=== PATIENT | female | born 1960 | race Caucasian/White ===

== ENCOUNTER 2019-02-09 08:17 | Inpatient (IN) ==
[~2019-02-09 08:17] MED LIST: MORPHINE SULFATE 15 MG TABLET.SA PO PRN; ROPIVACAINE HCL/PF 100 MG, EPINEPHrine 0.2 MG, KETOROLAC TROMETHAMINE 30 MG in NORMAL S... IJ PRN; TRANEXAMIC ACID 1,000 MG in NORMAL SALINE 100 ML IV PRN; ceFAZolin SODIUM 1 GM VIAL IV PRN
[2019-02-09] MEDS: RINGER'S SOLUTION,LACTATED 1,000 ML IV PRN ×2 (08:53→11:23)
--- NOTE | 2019-02-09 09:56 | ANES ---
Anesthesia Pre Procedure Eval Vitals/Labs: Last Vital Signs Temp 36.3 C 02/09/19 08:20 Pulse 78 02/09/19 08:20 Resp 16 02/09/19 08:20 BP 133/76 02/09/19 08:20 Pulse Ox 96 02/09/19 08:20 HOME MEDICATIONS Multivitamins [Multivitamin Rodrigo] 1 cap PO DAILY 08/03/13 [Last Taken 02/08/19] Calcium Carbonate/Vitamin D3 [Calcium 600-Vit D3 400 Tablet] 1 ea PO DAILY 07/18/17 [Last Taken 02/08/19] alprazolam 2 mg tablet 2 mg PO TID PRN #90 tab 12/12/18 [Last Taken 02/08/19] trazodone 100 mg tablet 200 mg PO HS #60 tab 12/12/18 [Last Taken 02/08/19] furosemide 40 mg tablet See Rx Instructions .ROUTE .COMPLEX #90 tab 02/05/19 [Last Taken 02/08/19] ibuprofen 800 mg tablet 800 mg PO TID PRN #90 tab 02/05/19 [Last Taken 02/02/19] pantoprazole 40 mg tablet,delayed release 40 mg PO DAILY #90 tab 02/05/19 [Last Taken 02/08/19] Allergies/Adverse Reactions: Allergies Allergy/AdvReac Type Severity Reaction Status Date / Time codeine AdvReac Mild NAUSEA AND Verified 02/09/19 08:27 VOMITING oxycodone AdvReac Mild Nausea Verified 02/09/19 08:27 tramadol AdvReac Mild Nausea Verified 02/09/19 08:27 - Planned Procedure Planned Procedure: Right Total Knee Arthroplasty Medication List Reviewed:: Yes Allergies Verified: Yes Medical History (Updated 12/21/18 @ 00:01 by ) Insomnia due to mental disorder (Chronic) Generalized anxiety disorder (Chronic) Scoliosis (Acute) Onset Date: Unknown Osteopenia (Acute) Onset Date: Unknown Osteoarthritis (Chronic) Onset Date: ~2013 GERD (gastroesophageal reflux disease) (Chronic) Onset Date: Unknown Degenerative joint disease of knee, right (Acute) Onset Date: Unknown CMC arthritis, thumb, degenerative (Acute) Onset Date: ~2016 left Herpes Onset Date: Unknown Anxiety (Resolved) Onset Date: Unknown Insomnia (Resolved) Onset Date: Unknown Left knee pain (Resolved) Onset Date: Unknown Peripheral edema (Resolved) Onset Date: Unknown Surgical History (Updated 09/03/18 @ 13:50 by CHARLENE Hinojosa) H/O colonoscopy Onset Date: ~2013 2004-Normal [id number], very capacious colon. Single sigmoid diverticulum. 07/27/13 Barium enema-redundant/capacious colon. recheck 5-10 years-contrast study due to anatomy) H/O elbow surgery Onset Date: ~2004 H/O: section Onset Date: Unknown 1976 1979 History of arthroplasty of left knee Onset Date: ~2015 Dr Thomson-with partial excision of scar tissue and partial synovectomy History of esophagogastroduodenoscopy (EGD) Onset Date: ~2015 Dr He-clotest negative. Moderate benign reactive gastropathy/chemical gastritis. Status post right foot surgery Onset Date: ~2008 [facility] with partial oopherectomy Onset Date: ~1979 Right ovary intact arthproplasty cmc joint Onset Date: ~2017 left-Dr Thomson manipulation under anesthesia Onset Date: ~2014 Dr Thomson-left knee Family History (Updated 12/05/17 @ 13:46 by Chely Winkler RN) Brother Brain cancer, Onset Age: 52 Daughter Alive and well Father Stomach cancer, Onset Age: 63 Mother Depression MVA (motor vehicle accident) Sister Thyroid cancer Depression - Family Anesthesia History Family History:: no untoward family reactions to anesthesia, no familial bleeding tendencies, no family history of clotting disorders, no family history of premature - Airway/Neck/Teeth Teeth Condition: missing Denture Type: Perm crown/bridge Mallampatti Score: 2 Thyromental (T-M) distance: > 6 cm Mandibulo Hyoid distance: > 3 cm - Respiratory Respiratory Physical: lungs clear Smoking Status: Never smoker Discussed smoking cessation including day of surgery: No Sleep Apnea currently treated: No Sleep Apnea by current assessment: No Discussed Risks/Treatment of GRETCHEN: No - Cardiovascular Tolerate Activity: Good Heart Sounds: S1 & S2, Regular - Anesthesia Assessment and Plan ASA Class: PS, II Anesthesia Type Plan: Block - Ultrasound guided adductor canal nerve block for postop analgesia, Spinal
--- NOTE | 2019-02-09 11:52 | OR ---
Operative Report - Dictated Report Narrative: Date: 02/09/2019 Preoperative diagnosis: Right knee degenerative joint disease. Postoperative diagnosis: Right knee degenerative joint disease. Procedure: Right total knee arthroplasty. Surgeon: Vincent Thomson M.D. Dietitian Helper: Mike Vega PA-C (provided and essential set of skilled, educated hands that assisted with transfer, positioning, prepping, draping, manipulation, retraction, placement of jigs, injection, insertion of implants, irrigation, closure wounds, and dressings all of which could not be performed by the available surgical crew) Anesthesia: Spinal with regional block and local periarticular joint injection. Complications: None Specimens: Bone for disposal per patient -request. Estimated blood loss: Minimal. Tourniquet time: 75 Minutes at 325 millimeters of mercury. Retained implants: Depuy Attune size 5 narrow right lugged cemented posterior stabilized femoral component. Size 4 fixed-bearing cemented tibial platform. 5 by 5 millimeter posterior stabilized cross-linked tibial insert. 35 millimeter medialized patella button. Indications: Mrs. Crespo is a 58-year-old female who has had long-standing right knee pain and arthrosis. This patient was followed in my clinic for period of time with significant complaints of right knee pain consistent with arthritic changes. She had failed conservative measures including, but not limited to, activity modification, passage of time, medications, and other conservative measures. Patient wished to proceed with surgical treatment. The risks, benefits, and alternatives were discussed in clinic. The risks of , blood clots, bleeding, infection, nerve/tendon blood vessel/ injury, malposition of components, intraoperative fracture, postoperative limited range of motion, persistent pain, failure of components, and need for additional procedures. Patient wished to proceed consent was obtained after answering all questions. Procedure: After marking the correct extremity on the floor, the patient was taken to the operating room. A timeout was performed. IV antibiotics con sisting of Ancef were administered prior to the procedure. A regional followed by spinal anesthetic was induced by anesthesia, per my request, on the operative table with all bony prominences well-padded. Christine catheter was placed, and a bump was placed under the operative side buttock. SCDs and LOUISE hose were utilized on the nonoperative leg. A well-padded tourniquet was applied to the operative thigh. The operative leg was then pre-scrubbed with alcohol, prepped, and draped in a standard sterile fashion. After exsanguinating the extremity with an Esmarch bandage, the tourniquet was inflated. After marking out the anterior knee for standard incision centered over the patella, the skin was incised and dissected down to the joint retinaculum. The joint retinaculum was marked out as well as the horizontal axis of the patella, and a standard medial parapatellar arthrotomy was then made. The most proximal aspect of the quadriceps tendon and the patella tendon insertion were protected from release. A partial synovectomy was performed as well as a resection of the infrapatellar fat pad. The distal femoral fat pad proximal to the trochlea was also resected using cautery. The soft tissues were elevated off the medial aspect of the proximal tibia using a Fernandes elevator ensuring that we did not transect the medial collateral ligament. Upon initial evaluation range of motion was approximately 0 degrees to 130 degrees of flexion. There were signs of advanced arthrosis in the lateral and patellofemoral greater than medial joint spaces. There were large marginal osteophytes which were removed with a rongeur. The knee was hyperflexed and the patella was tucked laterally. Protecting the surrounding soft tissues with Homans, an entry drill was placed down the femoral canal using Whitesides line for guidance into the entry point. The intramedullary femoral alignment marc was utilized in order to cut the distal femur in 5 degrees of valgus resecting 10 millimeters of bone. Next the distal femur was sized to a size 5. A posterior referencing guide was utilized to place the distal femoral cutting block in 3 degrees of external rotation. This was pinned into place. The rotation was confirmed both visually and based on anatomic landmarks. The 4 in 1 cutting jig of the appropriate size was utilized in order to make all bony cuts. The angle wing was used to ensure no notching. Retractors were utilized in order to protect surrounding soft tissues. This cut did not result in any excessive notching. We then cut the box centered over the distal femur. This allowed for resection of the anterior and posterior cruciate ligaments. I then turned my attention to the preparation of the tibia. Using an extra medullary tibial alignment marc, 3 millimeters of bone was resected off the medial articular surface. This was made perpendicular to the mechanical axis of the joint with the alignment marc centered over the ankle mortise. The alignment marc was checked and was noted to be parallel to the mechanical axis, centered over the medial one third of the tibial tubercle, paralleling the anterior surface of the tibia. We then turned our attention to the remaining meniscus and soft tissues. These were removed while protecting the surrounding ligaments and soft tissues. The marginal osteophytes off the anterior, posterior, medial, lateral aspects of the femur and tibia were removed. The tibia was sized out to a size 4. Next the tibia was drilled and punched in an externally rotated position. Next the trial femur and a series of tibial inserts were utilized in order to allow for full extension and maximal flexion. It was found that a 5 millimeter insert gave the best range of motion and stability at multiple flexion points as well as at full extension there was less than 2 mm of gapping both medially and laterally. There is minimal anterior translation with the knee at 90 degrees of flexion and no signs of being able to dislocate the knee. The patella was then prepared. The initial thickness was 22 millimeters. This was reamed down to 12 millimeters parallel to the anterior surface of the patella. It was sized out to a size 35 medialized patella button. This was then drilled and trialed. Without any medial restraint the patella tracked appropriately and did not sublux or dislocate. At this point, it was felt these were the appropriate sized implants, and all trials were removed. The standard periarticular joint injection consisting of ropivacaine, Toradol, and epinephrine were injected into the periarticular joint tissues. The bony surfaces were thoroughly irrigated with a pulsatile-suction saline irrigation device. A bone plug from the prior resected anterior chamfer cut was placed into the drill hole at the distal femur. The bony surfaces were then dried in preparation for placement of the implants. The cement was vacuum mixed per the mfts's instructions. The cement was placed on the dry bony surfaces and posterior aspect of the implants. The implants were impacted into place, removing all extruded cement. At this point anesthesia administered tranexamic acid per protocol intravenously. The knee was placed in extension with axial loading with the trial insert while the cement cured. Once the cement cured, all remaining extruded cement was removed. The knee was placed through a range of motion with the trial insert to ensure appropriate range of motion and stability. Final range of motion was approximately 0 to 130 degrees. The knee was again thoroughly irrigated with pulsatile saline lavage. The final polyethylene insert was then impacted into place ensuring no retained soft tissues. The remaining periarticular joint injection was injected. A medium Hemovac drain was placed exiting superior laterally. The knee was then placed over a triangle and the arthrotomy was closed with interrupted #1 Vicryl after thoroughly irrigating the joint. The deep and subcutaneous tissues were closed with interrupted 0 and 3-0 Vicryl respectively. Skin was closed with a running subcutaneous 3-0 Monocryl and Prineo Dermabond dressing. 4 x 4's, Sof-Rol, and a full leg Edgar wrap were applied. All sponge, needle, blade, and instrument counts were correct prior to closing the wounds. Postoperative condition: The patient was awoken and transferred to the postanesthesia care unit in stable condition. Plan is to be admitted to the inpatient medical/surgical floor postoperatively for 24 hours of IV antibiotics, physical therapy, occupational therapy, and medical comanagement. Patient will be weightbearing as tolerated with range of motion as tolerated. DVT prophylaxis will be with SCDs, LOUISE hose, and pharmacological anticoagulation. Anticipated hospital stay is approximately 1-3 days.
[2019-02-09] MEDS ORDERED: ACETAMINOPHEN 500 MG TABLET PO PRN (11:53)
[2019-02-09] MEDS ORDERED: ONDANSETRON HCL/PF 2 MG/ML VIAL IV PRN (11:53)
[2019-02-09] MEDS ORDERED: MAG HYDROX/ALUMINUM HYD/SIMETH 30 ML UDC PO PRN (11:53)
[2019-02-09] MEDS ORDERED: diphenhydrAMINE HCL 50 MG/ML VIAL IV PRN (11:53)
[2019-02-09] MEDS ORDERED: ZOLPIDEM TARTRATE 5 MG TABLET PO PRN (11:53)
[2019-02-09] MEDS ORDERED: MAGNESIUM HYDROXIDE 30 ML UDC PO PRN (11:53)
[2019-02-09] MEDS ORDERED: DEXTROSE 5%-LACTATED RINGERS 1,000 ML IV PRN (11:53)
[2019-02-09] MEDS ORDERED: MORPHINE SULFATE 2 MG/ML DISP.SYRIN IV PRN (11:53)
[2019-02-09] MEDS ORDERED: HYDROmorphone HCL 2 MG/ML VIAL IV PRN (12:11)
[2019-02-09] MEDS ORDERED: NALOXONE HCL 0.4 MG/ML VIAL IV PRN (12:11)
--- NOTE | 2019-02-09 12:16 | ANES ---
Anesthesia Procedure Note Procedure Note: ANESTHESIA PROCEDURE NOTE Date of Procedure: 02/09/2019. Time of procedure: 1005. Performed by: Pedro Llanes CRNA Script Developer: None. Preprocedure diagnosis: Right knee degenerative joint disease. Post procedure diagnosis: Same. Procedure: Right ultrasound guided adductor canal block for postoperative analgesia. Indications: The patient is a 58-year-old female, requesting right ultrasound- guided abductor canal block for postoperative analgesia related to right total knee arthroplasty. Findings: See below. Details of the procedure: The tissue over the intended target site was cleansed with ChloraPrepand draped in a sterile fashion. 2 ml Lidocaine 1 % was infiltrated to the skin and subcutaneous tissue at the intended target site. Under sterile technique and ultrasound guidance a 18-gauge Tuohy needle was inserted through the right sartorius muscle to the saphenous nerve just anterior and medial to the superficial femoral artery and vein. 15 mL's of 0.5% bupivacaine was injected after negative aspiration for blood. Needle tip and spread of local anesthetic surrounding the saphenous nerve was observed throughout the injection with real time ultrasound visualization. The Tuohy needle was then removed intact. No complications were noted. The images were retained in the Hospital medical database. EBL: Minimal. Fluids: N/A. Specimen: N/A. Post procedure condition: The patient tolerated the procedure well. No complications were noted. Thank you for this consultation. Pedro Llanes CRNA
--- NOTE | 2019-02-09 12:17 | ANES ---
Post Anesthesia Discharge - Transfer of Care Transfer of Care handoff given to nurse: Yes - Discharge from PACU Discharge from PACU when meets criteria: Yes - Discharge to ASU Discharge to ASU-no complications/pt stable: Yes
--- NOTE | 2019-02-09 12:44 | ANES ---
Post Anesthesia Assessment - Vital Signs Vitals: Last Vital Signs Temp 36.6 C 02/09/19 12:30 Pulse 74 02/09/19 12:30 Resp 14 02/09/19 12:30 BP 115/76 02/09/19 12:30 Pulse Ox 96 02/09/19 12:30 Airway Patency: Normal - Mental Status Level Of Consciousness: Awake - Pain Level Pain Score: 5 - N/V Assessment Nausea/Vomiting Presence: None Dehydration:: No
[2019-02-09] MEDS: KETOROLAC TROMETHAMINE 15 MG/ML VIAL IV SCH ×2 (13:43→18:56)
[2019-02-09] MEDS: ceFAZolin SODIUM 1 GM in DEXTROSE 5 % IN WATER 100 ML IV SCH ×4 (15:10→20:05)
[2019-02-09] MEDS: PROCHLORPERAZINE EDISYLATE 5 MG/ML VIAL IV PRN (17:16)
[2019-02-09] MEDS: ALPRAZolam 1 MG TABLET PO PRN (19:15)
[2019-02-09] MEDS: MORPHINE SULFATE 15 MG TABLET.SA PO SCH (20:05)
[2019-02-09] MEDS ORDERED: traZODone HCL 150 MG, traZODone HCL 50 MG PO SCH ×2 (21:00)
[2019-02-09] MEDS ORDERED: NON-FORMULARY 1 DOSE DOSE (Trazodone Hcl [Trazodone Hcl] 200 MG) PO SCH (21:00)
[2019-02-09] MEDS ORDERED: SENNOSIDES/DOCUSATE SODIUM 1 TAB TABLET PO SCH (21:00)
[2019-02-10] MEDS: KETOROLAC TROMETHAMINE 15 MG/ML VIAL IV SCH ×3 (00:02→12:46)
[2019-02-10] MEDS: ceFAZolin SODIUM 1 GM in DEXTROSE 5 % IN WATER 100 ML IV SCH ×2 (02:13)
[2019-02-10] MEDS: HYDROcodone/ACETAMINOPHEN 1 EACH TABLET PO PRN ×3 (02:22→12:22)
[2019-02-10 05:54] LABS: Hematocrit 27.5 % (37.0-47.0); Hemoglobin 9.4 gm/dL (12.5-16.0); Mean Cell Volume 93.5 fl (78-100); Mean Corpuscular Hgb Conc 34.2 g/dl (32-36); Mean Platelet Volume 8.3 fl (8-12.5); Platelet Count 185 K/mm3 (150-450); Red Blood Count 2.94 M/mm3 (4.2-5.4); Red Cell Distribution Width 12.5 % (11.5-14.0); White Blood Count 7.6 K/mm3 (4.0-10.5)
[2019-02-10 06:15] LABS: BUN/Creatinine Ratio 11.9 (9.0-21.6); Calcium * 8.6 mg/dL (7.9-10.9); Carbon Dioxide 29.3 mmol/L (24-32.6); Estimated Creat Clear 73.7; Potassium 3.3 mmol/L (3.4-4.6)
[2019-02-10] MEDS ORDERED: PANTOPRAZOLE SODIUM 40 MG TABLET.EC PO SCH (07:00)
[2019-02-10] MEDS: PROCHLORPERAZINE EDISYLATE 5 MG/ML VIAL IV PRN (08:31)
[2019-02-10] MEDS ORDERED: FUROSEMIDE 40 MG TABLET PO PRN (09:00)
[2019-02-10] MEDS ORDERED: CALCIUM CARBONATE/VITAMIN D3 1 TAB TABLET PO SCH (09:00)
[2019-02-10] MEDS ORDERED: MULTIVITAMINS 1 CAP CAPSULE PO SCH (09:00)
[2019-02-10] MEDS: MORPHINE SULFATE 15 MG TABLET.SA PO SCH (09:55)
[2019-02-10] MEDS ORDERED: ENOXAPARIN SODIUM 40 MG/0.4 ML SYRG SC SCH (10:53)
--- NOTE | 2019-02-10 12:14 | DS ---
(1) Status post total right knee replacement Problem: Acute (2) Acute blood loss anemia Problem: Acute (3) Generalized anxiety disorder Problem: Chronic (4) GERD (gastroesophageal reflux disease) Problem: Chronic (5) Degenerative joint disease of knee, right Problem: Chronic Qualifiers: Date of Discharge:: 02/10/19 Description of Stay: Mrs. Crespo was admitted to the floor after undergoing right total knee arthroplasty. Tolerated this well. Was admitted to the floor postoperatively for 24 hours of IV antibiotics, pain control, medical comanagement, and occupational and physical therapy. OT and PT were consulted to assist with activities of daily living and ambulation. Was made weightbearing as tolerated with range of motion as tolerated. Pain was initially controlled with IV regimen. This was transitioned to oral once tolerating a by mouth intake. Was resumed on home diet and medications. Had a Christine catheter inserted and the operating room which was discontinued on postoperative day 1. A drain was placed intraoperatively into the knee which was discontinued on postoperative day 1. Lovenox SCD and LOUISE hose were utilized for DVT prophylaxis. Vital signs remained stable to the hospital course. Serial labs were obtained which showed a final hemoglobin of 9.4 grams. BMP was reviewed and was stable. Physical examination throughout the hospital course showed an extremity that had sensation that was intact to light touch, palpable pulses, a benign wound, motor intact to the toes, ankle, and knee. Knee range of motion was approximately 5 degrees to 75 degrees. Once an oral pain regimen was tolerated and physical therapy goals were met, it was felt that they were stable for discharge to home. Instructions: Continue with weightbearing as tolerated and range of motion as tolerated. It is OK to shower on the wound if it is not draining. If you note any drainage or for comfort you can cover with dry gauze and tape. Change every 2-3 days as needed. Continue with physical therapy. Resume home diet. Report any fever over 101.5 Fahrenheit, uncontrolled pain, increased drainage, foul odor of drainage, new or increased calf pain or shortness of breath, or any other significant complaints. A 325mg dialy aspirin will be started after finishing anticoagulation if not allergic. Continue with LOUISE hose on the operative extremity until instructed otherwise. No driving until instructed otherwise. Follow up in approximately 10-14 days. Procedures Performed: see notes below List Procedures: Right total knee arthroplasty Results and Findings: Lab Pending Results 02/10/19 05:31: WBC 7.6, RBC 2.94 L, Hgb 9.4 L, Hct 27.5 L, MCV 93.5, MCH 32.0 H, MCHC 34.2, RDW 12.5, Plt Count 185, MPV 8.3 02/10/19 05:31: Sodium 141, Plasma Sodium 141, Potassium 3.3 L, Chloride 105, Carbon Dioxide 29.3, Anion Gap 10.0, BUN 7, Creatinine 0.59, Est GFR (Non-Af Amer) 111 D, BUN/Creatinine Ratio 11.9, Random Glucose 98, Calcium 8.6 Discharge Location: Home Disposition: Home self-care Condition: Good Discharge Activity: Activity as tolerated, Weight bearing, Other - With walker Discharge Diet: General/regular food Referrals: Vincent Thomson MD [Staff Physician] - 03/03/19 10:00 am Problem Oriented Discharge Instructions to Patient/Family: Total Knee Replacement, Care After, [id number] Additional Patient Instructions (free text): Physical Therapy at [facility] outpatient rehab department on Saturday02/11/19 at 12:00pm. Follow up Orthopedic office with Dr. Thomson on SaturdayMar.03 at 10:00am. Prescriptions (Any new or edited meds): Enoxaparin Sodium [Lovenox] 40 mg SC Q24H #7 disp.syrin Morphine Sulfate [Ms Contin] 15 mg PO Q12H #20 tablet.sa HYDROcodone/ACETAMINOPHEN [Sandpoint 5-325] 2 ea PO Q4H PRN #60 tab PRN Reason: Moderate Pain (Pain Scale 4-6) Sennosides/Docusate Sodium [Senokot-S] 2 tab PO HS #30 tab Complete Home Medications List: Complete Home Medication List: Multivitamins [Multivitamin Rodrigo] 1 cap PO DAILY 08/03/13 Calcium Carbonate/Vitamin D3 [Calcium 600-Vit D3 400 Tablet] 1 ea PO DAILY 07/18/17 alprazolam 2 mg tablet 2 mg PO TID PRN #90 tab 12/12/18 trazodone 100 mg tablet 200 mg PO HS #60 tab 12/12/18 furosemide 40 mg tablet See Rx Instructions .ROUTE .COMPLEX #90 tab 02/05/19 ibuprofen 800 mg tablet 800 mg PO TID PRN #90 tab 02/05/19 pantoprazole 40 mg tablet,delayed release 40 mg PO DAILY #90 tab 02/05/19 Enoxaparin Sodium [Lovenox] 40 mg SC Q24H #7 disp.syrin 02/10/19 HYDROcodone/ACETAMINOPHEN [Sandpoint 5-325] 2 ea PO Q4H PRN #60 tab 02/10/19 Morphine Sulfate [Ms Contin] 15 mg PO Q12H #20 tablet.sa 02/10/19 Sennosides/Docusate Sodium [Senokot-S] 2 tab PO HS #30 tab 02/10/19 Amb Orders for Discharge: PT Evaluation and Treatment* Facility: [facility], Location: Rehabilitation Services
[2019-02-10] MEDS: ALPRAZolam 1 MG TABLET PO PRN (12:22)
[2019-02-10 13:31] VITALS: BP 121/73
== END 2019-02-10 14:00 | disposition home or self-care (01) | DRG 470 ==
LOC: MS 08:17 → EDSTATUS 11:15
PROVIDERS: ADMIT Orthopaedic Surgery; ATTEND Orthopaedic Surgery
DX: D62 Acute posthemorrhagic anemia; K21.9 Gastro-esophageal reflux disease without esophagitis; M17.11 Unilateral primary osteoarthritis, right knee; F41.1 Generalized anxiety disorder
CPT/HCPCS: 36415; 73560; 80048; 85027; 97110; 97116; 97161; 97165; J2405